=== PATIENT | male | born 1960 | race Two or more races ===

== ENCOUNTER → 2020-06-09 | Outpatient (CLI) | payer OTHER | END | disposition home or self-care (01) | LOC: RADMRIMAIN 13:19 | PROVIDERS: ATTEND Orthopaedic Surgery | DX: Z53.9 Procedure and treatment not carried out, unspecified reason (principal) ==

== ENCOUNTER → 2024-06-08 | Outpatient (CLI) | payer MEDICARE ==
--- NOTE | 2024-06-08 09:11 | US ---
EXAMINATION TYPE: US abdomen complete DATE OF EXAM: 06/08/2024 COMPARISON: NONE CLINICAL INDICATION: Male, 64 years old with history of R10.12 LUQ PAIN; LUQ pain TECHNIQUE: Grayscale and color Doppler imaging of the abdomen was performed. FINDINGS: EXAM MEASUREMENTS: Liver Length: 13.0 cm Gallbladder Wall: 0.3 cm CBD: 0.5 cm Spleen: 8.3 cm Right Kidney: 10.3 x 5.4 x 4.8 cm Left Kidney: 10.9 x 4.6 x 4.8 cm Pancreas: obscured by overlying midline bowel gas Liver: 0.8cm cyst right lobe Gallbladder: 1.7cm echogenic shadowing focus within neck Evidence for sonographic Pereyra's sign: no CBD: visualized portions wnl, limited by overlying bowel gas Spleen: wnl Right Kidney: wnl Left Kidney: wnl Upper IVC: wnl Abd Aorta: proximal and mid portions obscured by overlying midline bowel gas, visualized distal port ions appear wnl Scanned LUQ at patient's palpable: 1.5 x 1.0 x 1.8cm area seen The liver is homogenous with a right hepatic lobe 0.8 cm simple cyst. The intrahepatic portion of th e IVC is within normal limits. The distal portion of the abdominal aorta is within normal limits. The proximal portions are obscured by overlying bowel gas. No gallbladder wall thickening or surrounding fluid. There is an echogenic shadowing calculus within the neck. Common bile duct is unremarkable. The pancreas is obscured by overlying bowel gas. The spleen is unremarkable. Kidneys are symmetric a nd free of hydronephrosis. No renal lesions are seen. There is an ovoid well-circumscribed cystic le nahomi within the left upper quadrant subcutaneous tissues measuring up to 1.5 cm with internal echogen ic foci. No tract to the skin surface or internal color flow identified. IMPRESSION: 1. Cholelithiasis without evidence for acute cholecystitis. 2. Left upper quadrant subcutaneous 1.4 cm cystic lesion favored to represent a benign process such a s a sebaceous cyst or pilomatricoma. [facility], , 06/08/2024 9:09 AM
== END | disposition home or self-care (01) ==
LOC: RADUSWWP 08:03
PROVIDERS: ATTEND Family Medicine
DX: K80.20 Calculus of gallbladder without cholecystitis without obstruction (principal); K76.89 Other specified diseases of liver
CPT/HCPCS: 76700